=== PATIENT | female | born 1950 | race Caucasian/White ===

== ENCOUNTER → 2017-01-02 | Outpatient (CLI) | payer MEDICARE, OTHER ==
[~2017-01-02] MED LIST: ACID CONTROL150 MG PO; CHRONULAC20 GM/30 M PO; FOSAMAX70 MG PO; GLUCOPHAGE 500500 MG PO; IRON SUPPLEMEN325 MG PO; LEVOTHYROXINE25 MCG PO; LIPITOR TAB 2020 MG PO; LISINOPRIL5 MG PO; LORTAB 10-3251 EACH PO; NEURONTIN 300300 MG PO; PROTONIX40 MG PO; SENOKOT-S TABL1 EACH PO; THERAGRAN M TAB1 EA PO; TRULICITY0.75 MG/0. SQ; VITAMIN D 11000 UNIT PO
== END ==
LOC: RT 11:26
DX: I95.1 Orthostatic hypotension (principal); R42 Dizziness and giddiness

== ENCOUNTER 2021-06-13 19:23 | Inpatient (IN) | payer MEDICARE, OTHER ==
[~2021-06-13] VITALS: Ht 160 cm; Wt 68.0 kg
[~2021-06-13 19:23] MED LIST changes: +FLUOXETINE HCL20 M1 PO; +KEFLEX500 MG PO; +LANTUS100 UNIT/1 SQ; -LEVOTHYROXINE25 MCG PO; -LIPITOR TAB 2020 MG PO; +LISINOPRIL10 MG PO; -LORTAB 10-3251 EACH PO; +MACROBID 100 M100 MG PO; -NEURONTIN 300300 MG PO; +OMEPRAZOLE40 MG PO; +PYRIDIUM100 MG PO; +ROCEPHIN 2 GM AD2 GM IV; +TOPROL XL 25 MG25 MG PO; +TRADJENTA5 MG PO; -TRULICITY0.75 MG/0. SQ; +ZOFRAN4 MG PO
[2021-06-13 20:33] LABS: HEMOGLOBIN 11.2 gm/dl (12.3-15.3); RED BLOOD COUNT 3.92 M/UL (4.00-5.10); WHITE BLOOD COUNT 4.7 K/UL (4.5-11.0)
[2021-06-13 20:58] LABS: BUN/CREATININE RATIO 14 (0-10)
[2021-06-14 00:53] LABS: HEMOGLOBIN 9.4 gm/dl (12.3-15.3)
[2021-06-14 00:55] LABS: RED BLOOD COUNT 3.33 M/UL (4.00-5.10); WHITE BLOOD COUNT 3.3 K/UL (4.5-11.0)
[2021-06-14] MEDS ORDERED: MECLIZINE HCL25 MG PO (09:52)
[2021-06-14 11:07] LABS: RED BLOOD COUNT 3.44 M/UL (4.00-5.10); WHITE BLOOD COUNT 4.8 K/UL (4.5-11.0)
[2021-06-14] MEDS ORDERED: TYLENOL EXTRA500 MG PO (15:18)
[2021-06-14] MEDS ORDERED: GABAPENTIN600 MG PO (16:56)
[2021-06-14] MEDS ORDERED: LIPITOR TAB 1010 MG PO (16:58)
[2021-06-14] MEDS ORDERED: HYDROCODON-ACE1 EAC2 PO (16:58)
[2021-06-14] MEDS ORDERED: LEVOTHYROXINE75 MCG PO (16:58)
[2021-06-14] MEDS ORDERED: TRULICITY0.75 MG/0. SQ (17:01)
[2021-06-16 08:23] LABS: HEMOGLOBIN 9.9 gm/dl (12.3-15.3); RED BLOOD COUNT 3.47 M/UL (4.00-5.10)
[2021-06-16 09:06] LABS: BUN/CREATININE RATIO 21 (0-10)
[2021-06-17 06:41] LABS: HEMOGLOBIN 10.8 gm/dl (12.3-15.3); RED BLOOD COUNT 3.75 M/UL (4.00-5.10); WHITE BLOOD COUNT 6.4 K/UL (4.5-11.0)
--- NOTE | 2021-06-17 11:20 | NUR ---
PATIENT ROOM AIR SAT 84%
[2021-06-18 08:16] LABS: HEMOGLOBIN 11.1 gm/dl (12.3-15.3); RED BLOOD COUNT 3.85 M/UL (4.00-5.10); WHITE BLOOD COUNT 5.4 K/UL (4.5-11.0)
[2021-06-18] MEDS ORDERED: DECADRON6 MG PO (11:27)
== END 2021-06-18 15:54 | disposition home health service (06) | DRG 177 ==
LOC: ER1 19:23 → M/S 21:41 → CDU 21:41 → M/S 06-15 14:07
PROVIDERS: Internal Medicine Infectious Disease; Physician Assistant; ADMIT Internal Medicine
PROC: 3E0333Z Introduction of Anti-inflammatory into Peripheral Vein, Percutaneous Approach (ICD-10-PCS; 2021-06-13)
PROC: 8E0ZXY6 Isolation (ICD-10-PCS; principal; 2021-06-15)
DX: U07.1 COVID-19 (principal); J12.82 Pneumonia due to coronavirus disease 2019; J96.01 Acute respiratory failure with hypoxia; N17.0 Acute kidney failure with tubular necrosis; A08.39 Other viral enteritis; E86.0 Dehydration; E87.6 Hypokalemia; E11.9 Type 2 diabetes mellitus without complications; E83.39 Other disorders of phosphorus metabolism; F41.9 Anxiety disorder, unspecified; I10 Essential (primary) hypertension; Z86.73 Personal history of transient ischemic attack (TIA), and cerebral infarction without residual deficits; Z87.440 Personal history of urinary (tract) infections; Z90.49 Acquired absence of other specified parts of digestive tract; Z88.6 Allergy status to analgesic agent; Z88.2 Allergy status to sulfonamides; Z88.8 Allergy status to other drugs, medicaments and biological substances; Z82.49 Family history of ischemic heart disease and other diseases of the circulatory system
CPT/HCPCS: 36415; 36600; 70450; 71045; 80048; 80053; 82550; 82553; 82803; 82962; 83036; 83605; 83735; 83874; 83880; 84484; 85025; 85652; 86140; 87040; 93005; 94760; 96374; 96375; 99285; C9113; G0378; J1100; J1650; J2405; J3475; J3480; U0002

== ENCOUNTER 2021-11-28 09:29 | Inpatient (IN) | payer MEDICARE, OTHER ==
[~2021-11-28] VITALS: Ht 160 cm; Wt 73.9 kg
[~2021-11-28 09:29] MED LIST changes: +DECADRON6 MG PO; +GABAPENTIN600 MG PO; +HYDROCODON-ACE1 EAC2 PO; +LEVOTHYROXINE100 MCG PO; +LIPITOR TAB 1010 MG PO; +MECLIZINE HCL25 MG PO; +TRULICITY1.5 MG/0.5 SQ; +TYLENOL EXTRA500 MG PO
[2021-11-28 10:24] LABS: RED BLOOD COUNT 3.16 M/UL (4.00-5.10); WHITE BLOOD COUNT 12.5 K/UL (4.5-11.0)
[2021-11-28 10:55] LABS: BUN/CREATININE RATIO 12 (0-10)
[2021-11-28] MEDS ORDERED: VITAMIN D21250 MCG PO (14:49)
[2021-11-28] MEDS ORDERED: HYDRALAZINE HCL50 MG PO (14:49)
[2021-11-28] MEDS ORDERED: NITROGLYCERIN0.4 MG SL (14:49)
[2021-11-29 06:39] LABS: HEMOGLOBIN 7.8 gm/dl (12.3-15.3)
[2021-11-29 06:41] LABS: RED BLOOD COUNT 2.66 M/UL (4.00-5.10); WHITE BLOOD COUNT 7.9 K/UL (4.5-11.0)
--- NOTE | 2021-11-29 13:24 | NUR ---
alonzo discontinued per protocol with 100 yellow urine in bag. she tolerated well.
[2021-11-30 06:38] LABS: HEMOGLOBIN 7.5 gm/dl (12.3-15.3); RED BLOOD COUNT 2.55 M/UL (4.00-5.10)
[2021-11-30 06:39] LABS: WHITE BLOOD COUNT 5.4 K/UL (4.5-11.0)
[2021-12-01 03:47] LABS: HEMOGLOBIN 7.2 gm/dl (12.3-15.3); RED BLOOD COUNT 2.48 M/UL (4.00-5.10); WHITE BLOOD COUNT 4.9 K/UL (4.5-11.0)
[2021-12-01] MEDS ORDERED: FEOSOL325 MG PO (12:06)
[2021-12-02 03:12] LABS: HEMOGLOBIN 8.7 gm/dl (12.3-15.3); WHITE BLOOD COUNT 5.4 K/UL (4.5-11.0)
[2021-12-02 03:14] LABS: RED BLOOD COUNT 3.09 M/UL (4.00-5.10)
[2021-12-03 04:04] LABS: HEMOGLOBIN 8.9 gm/dl (12.3-15.3); RED BLOOD COUNT 3.19 M/UL (4.00-5.10); WHITE BLOOD COUNT 6.3 K/UL (4.5-11.0)
[2021-12-04 03:42] LABS: HEMOGLOBIN 9.4 gm/dl (12.3-15.3); RED BLOOD COUNT 3.3 M/UL (4.00-5.10); WHITE BLOOD COUNT 7.6 K/UL (4.5-11.0)
[2021-12-05 03:29] LABS: HEMOGLOBIN 9.2 gm/dl (12.3-15.3); RED BLOOD COUNT 3.24 M/UL (4.00-5.10); WHITE BLOOD COUNT 6.6 K/UL (4.5-11.0)
[2021-12-05] MEDS ORDERED: AMLODIPINE BESYL5 MG PO (14:40)
[2021-12-05] MEDS ORDERED: FEOSOL325 MG PO (14:40)
[2021-12-05] MEDS ORDERED: PROTONIX 40 MG40 M1 PO (14:40)
== END 2021-12-05 15:44 | disposition home or self-care (01) | DRG 378 ==
LOC: ER1 09:29 → CDU 13:49 → MED SURG 4 13:49
PROVIDERS: Nurse Practitioner; Physician Assistant; ADMIT Internal Medicine
PROC: 30233N1 Transfusion of Nonautologous Red Blood Cells into Peripheral Vein, Percutaneous Approach (ICD-10-PCS; principal; 2021-12-01)
PROC: 0DB98ZX Excision of Duodenum, Via Natural or Artificial Opening Endoscopic, Diagnostic (ICD-10-PCS; 2021-12-05)
DX: K92.2 Gastrointestinal hemorrhage, unspecified (principal); N17.9 Acute kidney failure, unspecified; E78.5 Hyperlipidemia, unspecified; I11.0 Hypertensive heart disease with heart failure; Z20.822 Contact with and (suspected) exposure to COVID-19; E83.42 Hypomagnesemia; I50.9 Heart failure, unspecified; D50.9 Iron deficiency anemia, unspecified; K52.9 Noninfective gastroenteritis and colitis, unspecified; E11.9 Type 2 diabetes mellitus without complications; F41.9 Anxiety disorder, unspecified; E66.9 Obesity, unspecified; R91.1 Solitary pulmonary nodule; K22.2 Esophageal obstruction; K44.9 Diaphragmatic hernia without obstruction or gangrene; E03.9 Hypothyroidism, unspecified; M54.9 Dorsalgia, unspecified; G89.29 Other chronic pain; Z86.73 Personal history of transient ischemic attack (TIA), and cerebral infarction without residual deficits; Z90.710 Acquired absence of both cervix and uterus; Z85.42 Personal history of malignant neoplasm of other parts of uterus; Z90.49 Acquired absence of other specified parts of digestive tract; Z88.2 Allergy status to sulfonamides; Z88.8 Allergy status to other drugs, medicaments and biological substances; Z82.49 Family history of ischemic heart disease and other diseases of the circulatory system; Z80.8 Family history of malignant neoplasm of other organs or systems; Z79.899 Other long term (current) drug therapy; Z68.28 Body mass index [BMI] 28.0-28.9, adult
CPT/HCPCS: 36415; 36600; 71045; 80048; 80053; 81001; 82150; 82550; 82553; 82607; 82728; 82746; 82803; 82962; 83540; 83550; 83605; 83690; 83735; 83880; 84484; 85018; 85025; 85027; 86850; 86900; 86901; 86920; 87040; 87086; 93005; 96374; 96375; 96376; 99285; G0378; J0360; J0696; J1756; J2405; J2704; J3475; J7030; J7040; P9016; U0002

== ENCOUNTER → 2022-01-11 | Day surgery (SDC) | payer MEDICARE, OTHER ==
[~2022-01-11] MED LIST changes: +AMLODIPINE BESYL5 MG PO; +FEOSOL325 MG PO; +HYDRALAZINE HCL50 MG PO; +NITROGLYCERIN0.4 MG SL; +PROTONIX 40 MG40 M1 PO; +VITAMIN D21250 MCG PO
== END | disposition home or self-care (01) ==
LOC: OR 08:15
DX: D12.3 Benign neoplasm of transverse colon (principal); D50.0 Iron deficiency anemia secondary to blood loss (chronic); E66.9 Obesity, unspecified; E78.00 Pure hypercholesterolemia, unspecified; E11.9 Type 2 diabetes mellitus without complications; I11.0 Hypertensive heart disease with heart failure; I50.22 Chronic systolic (congestive) heart failure; K22.2 Esophageal obstruction; M81.0 Age-related osteoporosis without current pathological fracture; E03.9 Hypothyroidism, unspecified; Z88.6 Allergy status to analgesic agent; Z88.2 Allergy status to sulfonamides; Z88.8 Allergy status to other drugs, medicaments and biological substances; Z98.51 Tubal ligation status; Z68.30 Body mass index [BMI] 30.0-30.9, adult; Z20.822 Contact with and (suspected) exposure to COVID-19; K64.1 Second degree hemorrhoids
CPT/HCPCS: 82962; J2704; J7040